=== PATIENT | male | born 1995 | race Caucasian/White ===

== ENCOUNTER 2019-01-06 21:09 | Emergency (ER) | payer OTHER ==
[~2019-01-06] VITALS: Ht 170.2 cm; Wt 137.5 kg
[2019-01-06 21:21] VITALS: Ht 170.2 cm; Wt 137.5 kg
[2019-01-06] MEDS ORDERED: IBUPROFEN 800 MG TAB PO ONE (22:00)
--- NOTE | 2019-01-06 22:56 | ERD ---
ER Documentation Chief Complaint Chief Complaint L testicular pain x 4 hours; unsure if swollen HPI Very pleasant 23-year-old male who presents to the emergency room with left testicle pain that started around 6:30 PM. The patient states that there is some mild discomfort and throbbing to the testicle but no significant swelling. He denies any falls or injuries. This occurred when he was walking his dog. Patient denies any history of STD, no dysuria urgency or frequency fevers or chills. No recent trauma. Pain is 6 out of 10 currently. ROS All systems reviewed and are negative except as per history of present illness. Medications Home Meds Active Scripts Ibuprofen* (Motrin*) 800 Mg Tab, 800 MG PO Q6H PRN for PAIN AND OR ELEVATED TEMP, #30 TAB Prov:BRENTON MCKOY MD 01/06/19 Allergies Allergies: Coded Allergies: No Known Allergy (Unverified , 08/15/14) PMhx/Soc Medical and Surgical Hx: pt denies Medical Hx, pt denies Surgical Hx Hx Alcohol Use: No Hx Substance Use: No Hx Tobacco Use: No Smoking Status: Never smoker Physical Exam Vitals Vital Signs Date Temp Pulse Resp B/P (MAP) Pulse Ox O2 O2 Flow FiO2 Time Delivery Rate 01/06/19 97.8 97 20 180/111 97 21:21 (134) Physical Exam General: Well developed, well nourished, no acute distress Head: Normocephalic, atraumatic. Eyes: EOM intact ENT: Moist mucous membranes Neck: Full ROM Respiratory: No respiratory distress Cardiovascular: Well perfused distally Abdominal: Nondistended : Scrotal contents are with bilateral testicles that are nonswollen nontender. The left testicle is without focal tenderness or deformities. No significant swelling. Intact reflexes. MSK: No edema, no unilateral swelling, 5/5 strength Neurologic: Alert and oriented, moving all extremities, normal speech, steady gait Skin: No rash Psych: Normal mood Results 24 hrs Laboratory Tests Test 01/06/19 22:08 Urine Color YELLOW Urine Clarity HAZY Urine pH 5.0 Urine Specific [place] 1.035 Urine Ketones NEGATIVE mg/dL Urine Nitrite NEGATIVE mg/dL Urine Bilirubin NEGATIVE mg/dL Urine Urobilinogen 0.2 E.U./dL mg/dL Urine Leukocyte Esterase NEGATIVE Gino/ul Urine Microscopic RBC 97 /HPF Urine Microscopic WBC 1 /HPF Urine Squamous Epithelial Cells FEW /HPF Urine Bacteria FEW /HPF Urine Mucus FEW /HPF Urine Hemoglobin 3+ mg/dL Urine Glucose NEGATIVE mg/dL Urine Total Protein 1+ mg/dl Current Medications Medications Dose Sig/Flor[place]ma Start Time Status Last (Trade) Ordered Route PRN Stop Time Admin Dose Reason Admin Ibuprofen 800 mg ONCE ONCE 01/06/19 DC 01/06/19 (Motrin) PO 22:00 21:42 01/06/19 22:01 Procedures/MDM EKG, MONITORS, & DIAGNOSTIC IMAGING: Scrotal ultrasound: IMPRESSION: 1. Unremarkable testicular ultrasound. No evidence of testicular torsion. RPTAT: [facility] LAB INTERPRETATION: I reviewed the laboratory testing and it shows no evidence of acute process MEDICAL DECISION MAKING: Clinical exam likely consistent with epididymitis versus cyst. Clinical exam is not consistent with acute testicular torsion. The patient is intact reflexes. Patient will benefit from scrotal ultrasound, urinalysis, NSAID therapy. Outpatient urology follow-up likely appropriate. ER COURSE: * Patient was given Motrin. Laboratory testing is unrevealing. Ultrasound of the scrotum was also unrevealing. At this point no clear indication for antibiotics. Patient can be safely discharged with outpatient follow-up with urologist. He does have microscopic hematuria of unclear etiology. This does not appear to be consistent with ureteral colic. No flank pain. CONSULTATION: None DISPOSITION PLAN: The patient does not have an identifiable emergent medical condition that warrants inpatient hospitalization at this time. The patient is deemed safe for discharge with outpatient follow-up. We discussed follow up with the patient's primary care doctor within 24 to 48 hours as needed. We also discussed return to the emergency room for worsening symptoms or worsening condition. Outpatient referral: Urology Discharge Medications: Motrin Departure Diagnosis: Primary Impression: Left testicular pain Additional Impression: Microscopic hematuria Condition: Stable BRENTON MCKOY MD January 06, 2019 22:56
[2019-01-06] MEDS ORDERED: IBUP800T48 PO (23:21)
[2019-01-06 23:55] VITALS: BP 148/99; PULSE 100; RESP 18
== END 2019-01-06 23:56 | disposition home or self-care (01) ==
LOC: E/R 21:09
DX: N50.812 Left testicular pain (principal); R31.29 Other microscopic hematuria
CPT/HCPCS: 76870; 81001; 87086